=== PATIENT | female | born 1985 ===

== ENCOUNTER 2017-03-14 21:54 | Emergency (ER) | payer SELFPAY ==
[2017-03-14 22:03] VITALS: RESP 20
[2017-03-14] MEDS ORDERED: Lidocaine 1% Inj (20ml) INFIL ONE (23:16)
[2017-03-14 23:39] LABS: BASO # 0.1 K/uL (0.0-0.2); BASO % 0.6 % (0.0-2.0); EOS # 0.2 K/uL (0.0-0.7); EOS % 2.1 % (0.0-4.0); HEMATOCRIT 35.3 % (34.0-47.0); LYMPH # 3.3 K/uL (1.0-4.3); LYMPH % 36.3 % (20.0-40.0); MEAN CELL VOLUME 92.5 fL (81.0-99.0); MEAN CORPUSCULAR HEMOGLOBIN 31.3 pg (27.0-31.0); MEAN CORPUSCULAR HGB CONC 33.8 g/dL (33.0-37.0); MONO # 0.6 K/uL (0.0-0.8); MONO % 6.7 % (0.0-10.0); RED CELL DISTRIBUTION WIDTH 12.6 % (11.5-14.5); WHITE BLOOD COUNT 9.2 K/uL (4.8-10.8)
[2017-03-14 23:46] LABS: CHLORIDE 99 mmol/L (98-107); SODIUM 136 mmol/L (132-148)
[2017-03-14 23:47] LABS: POTASSIUM 4.1 mmol/L (3.6-5.2)
--- NOTE | 2017-03-14 23:47 | C.PDOC ---
History Of Present Illness 31 year old female presents to the ED with pain and swelling to the right lateral lower extremity since approximately last week. Patient states it was draining before but pus has stopped draining and scab now present at the area. Patient denies any chills, fever. Time Seen by Provider: 03/14/17 22:54 Chief Complaint (Nursing): Lower Extremity Problem/Injury History Per: Patient History/Exam Limitations: no limitations Onset/Duration Of Symptoms: Days Current Symptoms Are (Timing): Still Present Recent travel outside of the [place]: No Past Medical History Reviewed: Historical Data, Nursing Documentation, Vital Signs Vital Signs: Last Vital Signs Temp 98.7 F 03/15/17 00:15 Pulse 88 03/15/17 00:15 Resp 20 03/15/17 00:15 BP 132/78 03/15/17 00:15 Pulse Ox 98 03/17/17 13:58 - Medical History PMH: No Chronic Diseases Surgical History: No Surg Hx Family History: States: Unknown Family Hx - Social History Hx Alcohol Use: No Hx Substance Use: No - Immunization History Hx Tetanus Toxoid Vaccination: No Hx Influenza Vaccination: No Hx Pneumococcal Vaccination: No Review Of Systems Constitutional: Negative for: Fever, Chills Skin: Positive for: Other (erythema) Physical Exam - Physical Exam Appears: Non-toxic, No Acute Distress Skin: Warm, Dry, Other (7x4cm area of warmth and erythema with central area of scab, lateral fluctuance ) Head: Atraumatic, Normacephalic Extremity: Normal ROM (x4) Neurological/Psych: Oriented x3, Normal Speech, Normal Cognition ED Course And Treatment - Laboratory Results Result Diagrams: 03/14/17 23:36 03/14/17 23:36 O2 Sat by Pulse Oximetry: 98 (Room air) Pulse Ox Interpretation: Normal - Incision & Drainage Of Abscess Anesthesia: Lidocaine 1% Prep Used: Sterile Water, Betadine Procedure: Drained Pus, Cultures Obtained And Sent To Lab Medical Decision Making Medical Decision Making: Blood work, Ibuprofen, Bactrim, wound culture I&D performed, patient tolerated without any difficulty. Few CCs of pus drained and wound cultures sent. Patient instructed to follow up for wound check. Addendum: 03/17/09 microbiology results received; pt has mrsa, it is sensitive to bactrim (which pt was sent home on), but more so to clinda and cipro. message in greenlandic left for patient to return to ED for wound check today to determine if switch in antibiotics needed. Disposition Counseled Patient/Family Regarding: Studies Performed, Diagnosis, Need For Followup, Rx Given - Disposition Referrals: [facility] [Outside] [facility] [Outside] Disposition: HOME/ ROUTINE Disposition Time: 23:55 Condition: STABLE Additional Instructions: Aplique compresas calientes a la pierna derecha varias veces al da. [place] los antibiticos segn lo prescrito. Tylenol o Motrin para el dolor. Regrese a ER en 2 aldrich para kathi revisin de herida; sin embargo, si el enrojecimiento en la pierna se extiende ms all de la lnea dibujada, o usted desarrolla kathi fiebre o kathi paoa significativamente empeora, entonces vuelva a ED ms pronto. Prescriptions: Sulfamethoxazole/Trimethoprim [Bactrim DS 800 mg-160 mg] 1 tab PO BID #20 tab Instructions: Cellulitis (ED), Abscess (ED) Forms: Gen Discharge Inst Azeri, [email or web address] Connect (Azeri) Print Language: FRISIAN - Clinical Impression Clinical Impression: Abscess of right lower extremity, Cellulitis of right lower leg - Scribe Statement The provider has reviewed the documentation as recorded by the Scribe Valeriano Urena All medical record entries made by the Scribe were at my direction and personally dictated by me. I have reviewed the chart and agree that the record accurately reflects my personal performance of the history, physical exam, medical decision making, and the department course for this patient. I have also personally directed, reviewed, and agree with the discharge instructions and disposition.
[2017-03-14 23:49] LABS: GFR AFRICAN-AMERICAN > 60
[2017-03-14 23:50] LABS: BLOOD UREA NITROGEN 12 mg/dL (7-17); CALCIUM 9.4 mg/dl (8.6-10.4); CARBON DIOXIDE 27 mmol/L (22-30); GLUCOSE,RANDOM 108 mg/dL (65-105)
[2017-03-14] MEDS ORDERED: Tmp-Smz 800 mg-160 mg DS Tab PO STA (23:53)
[2017-03-15 00:39] VITALS: BP 132/78; PULSE 88; TEMP 98.7
[2017-03-15 05:46] VITALS: O2SAT 98
== END 2017-03-15 00:15 | disposition home or self-care (01) ==
LOC: C.ER 21:54
DX: L02.415 Cutaneous abscess of right lower limb (principal); L03.115 Cellulitis of right lower limb